=== PATIENT | female | born 1985 | race American Indian/Alaskan Native ===

== ENCOUNTER 2017-09-06 11:43 | Emergency (ER) | payer OTHER ==
[~2017-09-06] VITALS: Ht 167.6 cm; Wt 96.6 kg
[2017-09-06] MEDS ORDERED: DICLOFENAC SODI50 MG PO (12:40)
[2017-09-06] MEDS ORDERED: NORFLEX100MG PO (12:40)
== END 2017-09-06 12:46 | disposition home or self-care (01) ==
LOC: ER 11:43
DX: L29.8 Other pruritus (principal); L21.0 Seborrhea capitis

== ENCOUNTER → 2017-11-21 | Emergency (ER) | payer OTHER ==
[~2017-11-21] VITALS: Ht 167.6 cm; Wt 94.3 kg
[~2017-11-21] MED LIST: DICLOFENAC SODI50 MG PO; NORFLEX100MG PO
== END | disposition home or self-care (01) ==
LOC: ER 06:02
DX: K52.89 Other specified noninfective gastroenteritis and colitis (principal)

== ENCOUNTER 2019-10-02 06:12 | Inpatient (IN) | payer OTHER ==
[~2019-10-02] VITALS: Ht 157.5 cm; Wt 99.3 kg
[2019-10-02] MEDS ORDERED: PRENATAL TABLE1 EAC1 PO (09:34)
== END 2019-10-04 15:13 | disposition home or self-care (01) | DRG 807 ==
LOC: OB/GYN 06:12 → LDR 06:12 → OB/GYN 13:26
PROVIDERS: ADMIT Specialist
PROC: 10E0XZZ Delivery of Products of Conception, External Approach (ICD-10-PCS; principal; 2019-10-02)
PROC: 0KQM0ZZ Repair Perineum Muscle, Open Approach (ICD-10-PCS; 2019-10-02)
PROC: 3E033VJ Introduction of Other Hormone into Peripheral Vein, Percutaneous Approach (ICD-10-PCS; 2019-10-02)
PROC: 10907ZC Drainage of Amniotic Fluid, Therapeutic from Products of Conception, Via Natural or Artificial Opening (ICD-10-PCS; 2019-10-02)
PROC: 4A1HXCZ Monitoring of Products of Conception, Cardiac Rate, External Approach (ICD-10-PCS; 2019-10-02)
DX: O70.1 Second degree perineal laceration during delivery (principal); Z37.0 Single live birth; Z3A.39 39 weeks gestation of pregnancy

== ENCOUNTER 2023-04-05 08:33 | Emergency (ER) | payer OTHER ==
[~2023-04-05] VITALS: Ht 162.6 cm; Wt 97.1 kg
[~2023-04-05 08:33] MED LIST changes: +PRENATAL TABLE1 EAC1 PO
== END 2023-04-05 11:26 | disposition home or self-care (01) ==
LOC: ER 08:33
DX: M62.838 Other muscle spasm (principal)